=== PATIENT | male | born 1945 | race Caucasian/White ===

== ENCOUNTER → 2018-08-10 | Outpatient (REF) | payer MEDICARE ==
[~2018-08-10] MED LIST: CIPRO XR500 M2 PO; CIPROFLOXACN500 MG PO; DILAUDID 2MG2 MG/TAB PO; DOXYCYCL HYC100 MG PO; ELAVIL50 MG PO; FLOMAX0.4 M1 PO; GABAPENTIN100 MG PO; GABAPENTIN800 MG PO; GLUCOSAMINE1500 MG PO; HYDROCHLORO25 MG/TAB PO; LEVAQUIN500 MG PO; LOSARTAN POTASS50 MG PO; METO50TA52 PO; MONTELUKAST SOD10 MG PO; NORVASC2.5 MG PO; OMEPRAZOLE20 M2 PO; PROSCAR5 MG PO; ROPINIROLE0.5 MG PO; SIMVASTATIN40 MG PO; SYNTHROID50 MCG PO; TESTOSTERONE INJECT; TRAMADOL HCL50 MG PO; TRAZODONE50 MG PO; VITAMIN B 12 IJ; ZETIA10 MG PO
[2018-08-10 09:00] LABS: GFR > 60 ML/MIN (>=60 (CALC)); GFR FOR AFR.AMER. > 60 ML/MIN (>=60 (CALC))
== END | disposition home or self-care (01) ==
LOC: CT 08:40
PROVIDERS: ATTEND Surgery
DX: R10.13 Epigastric pain (principal); Q61.02 Congenital multiple renal cysts
CPT/HCPCS: Q9967

== ENCOUNTER 2018-08-12 08:54 | Day surgery (SDC) | payer MEDICARE ==
[~2018-08-12] VITALS: Ht 177.8 cm; Wt 113.4 kg
[~2018-08-12 08:54] MED LIST changes: -DOXYCYCL HYC100 MG PO; -MONTELUKAST SOD10 MG PO; -OMEPRAZOLE20 M2 PO; -ROPINIROLE0.5 MG PO; -TESTOSTERONE INJECT; -TRAZODONE50 MG PO
[2018-08-12] MEDS ORDERED: TRAZODONE50 MG PO (09:58)
[2018-08-12] MEDS ORDERED: OMEPRAZOLE20 M2 PO (09:58)
[2018-08-12] MEDS ORDERED: MONTELUKAST SOD10 MG PO (09:58)
[2018-08-12] MEDS ORDERED: DOXYCYCL HYC100 MG PO (09:58)
[2018-08-12] MEDS ORDERED: ROPINIROLE0.5 MG PO (09:58)
[2018-08-12] MEDS ORDERED: TESTOSTERONE INJECT (09:59)
[2018-08-12 11:41] VITALS: BP 92/52
== END 2018-08-12 11:45 | disposition home or self-care (01) ==
LOC: ENDO 08:54 → ORM 10:40 → ENDO 11:45 → ORM 12:15
PROVIDERS: ATTEND Surgery
PROC: 0DB78ZX Excision of Stomach, Pylorus, Via Natural or Artificial Opening Endoscopic, Diagnostic (ICD-10-PCS; principal; 2018-08-12)
DX: K29.50 Unspecified chronic gastritis without bleeding (principal); K44.9 Diaphragmatic hernia without obstruction or gangrene; E11.40 Type 2 diabetes mellitus with diabetic neuropathy, unspecified

== ENCOUNTER 2022-09-30 09:50 | Day surgery (SDC) | payer MEDICARE ==
[~2022-09-30] VITALS: Ht 177.8 cm; Wt 124.7 kg
[~2022-09-30 09:50] MED LIST changes: +DOXYCYCL HYC100 MG PO; +MONTELUKAST SOD10 MG PO; +OMEPRAZOLE20 M2 PO; +ROPINIROLE0.5 MG PO; +TESTOSTERONE INJECT; +TRAZODONE50 MG PO
[2022-09-30 14:03] VITALS: BP 157/87
== END 2022-09-30 14:15 | disposition home or self-care (01) ==
LOC: ENDO 09:50 → ORM 11:00 → ENDO 14:15 → ORM 14:40
PROVIDERS: ATTEND Internal Medicine Gastroenterology
PROC: 0DBP8ZX Excision of Rectum, Via Natural or Artificial Opening Endoscopic, Diagnostic (ICD-10-PCS; principal; 2022-09-30)
PROC: 0DBE8ZX Excision of Large Intestine, Via Natural or Artificial Opening Endoscopic, Diagnostic (ICD-10-PCS; 2022-09-30)
PROC: 0DB98ZX Excision of Duodenum, Via Natural or Artificial Opening Endoscopic, Diagnostic (ICD-10-PCS; 2022-09-30)
PROC: 0DB68ZX Excision of Stomach, Via Natural or Artificial Opening Endoscopic, Diagnostic (ICD-10-PCS; 2022-09-30)
PROC: 0DB38ZX Excision of Lower Esophagus, Via Natural or Artificial Opening Endoscopic, Diagnostic (ICD-10-PCS; 2022-09-30)
DX: K62.1 Rectal polyp (principal); K64.8 Other hemorrhoids; K22.70 Barrett's esophagus without dysplasia; K29.50 Unspecified chronic gastritis without bleeding; K31.7 Polyp of stomach and duodenum; D3A.8 Other benign neuroendocrine tumors; G60.9 Hereditary and idiopathic neuropathy, unspecified; I10 Essential (primary) hypertension; G47.33 Obstructive sleep apnea (adult) (pediatric); E78.5 Hyperlipidemia, unspecified; N40.0 Benign prostatic hyperplasia without lower urinary tract symptoms; E03.9 Hypothyroidism, unspecified